=== PATIENT | female | born 1980 | race African-American/Black ===

== ENCOUNTER 2021-09-05 09:00 | Emergency (ER) | payer BC | END 2021-09-05 10:42 | disposition home or self-care (01) | LOC: ERS 09:00 | DX: M67.833 Other specified disorders of tendon, right wrist (principal); F17.210 Nicotine dependence, cigarettes, uncomplicated ==

== ENCOUNTER 2022-07-31 13:24 | Emergency (ER) | payer BC | END 2022-07-31 14:32 | disposition home or self-care (01) | LOC: ERS 13:24 | DX: J06.9 Acute upper respiratory infection, unspecified (principal); F17.210 Nicotine dependence, cigarettes, uncomplicated | CPT/HCPCS: 99283 ==

== ENCOUNTER 2022-09-15 11:07 | Emergency (ER) | payer BC | END 2022-09-15 11:30 | disposition home or self-care (01) | LOC: ERS 11:07 | DX: J11.1 Influenza due to unidentified influenza virus with other respiratory manifestations (principal); Z20.822 Contact with and (suspected) exposure to COVID-19; F17.210 Nicotine dependence, cigarettes, uncomplicated | CPT/HCPCS: 87804; 99283; U0003; U0005 ==